=== PATIENT | male | born 2000 | race Two or more races ===

== ENCOUNTER 2023-09-22 17:49 | Emergency (ER) | payer SELFPAY ==
[2023-09-22 17:56] VITALS: BP 137/79; PULSE 69; RESP 14; TEMP 37.1; O2SAT 100; BMI 20.1
--- NOTE | 2023-09-22 18:15 | ED.SKABFB1 ---
HPI - Skin/Abscess/Foreign Bdy General Chief complaint: Skin/Abscess/Foreign Body Stated complaint: rash Time Seen by Provider: 09/22/23 17:53 Source: patient and certified court/medical interpreter Mode of arrival: walk-in History of Present Illness HPI narrative: 23-year-old male presents for rash. It's pruritic and it started after taking an anti-inflammatory, diclofenac, that he was taking for his back. He breathing or swallowing or tongue swelling. The rash is continuous. Related Data Previous Rx's Medication Instructions Recorded prednisone 10 mg tablet See Rx Instructions .Route 09/22/23 .COMPLEX #30 tabs Allergies Allergy/AdvReac Type Severity Reaction Status Date / Time No Known Drug Allergies Allergy Verified 09/22/23 18:03 Review of Systems ROS Narrative A ten point review of systems is negative except as noted above. Exam Narrative Exam Narrative: Nurses note and vital signs reviewed and patient is not hypoxic. General: The patient appears well and in no apparent distress. Patient is resting comfortably on cart. Skin: Warm, dry, no pallor noted. There is an erythematous scattered rash present mostly on his upper torso and left arm. Tongue not swollen. Head: Normocephalic, atraumatic Eye: Normal conjunctiva, no drainage Ears, Nose, Mouth, and Throat: oral mucosa is moist. Nares patent. Cardiovascular: Regular Rate and Rhythm Respiratory: Patient is in no distress, no accessory muscle use, lungs are clear to auscultation, no wheezing, rales or rhonchi Back: non-tender GI: soft and nontender Musculoskeletal: The patient has no evidence of calf tenderness, no pitting edema, symmetrical pulses noted bilaterally Neurological: awake and alert Psychiatric: Cooperative Constitutional Vital Signs, click to edit/add: Last Vital Signs Temp 98.7 F 09/22/23 17:56 Pulse 69 09/22/23 17:56 Resp 14 09/22/23 17:56 BP 137/79 09/22/23 17:56 Pulse Ox 100 09/22/23 17:56 O2 Del Method Room Air 09/22/23 17:56 Course Vital Signs Vital signs: Vital Signs Temperature 98.7 F 09/22/23 17:56 Pulse Rate 69 09/22/23 17:56 Respiratory Rate 14 09/22/23 17:56 Blood Pressure 137/79 09/22/23 17:56 Pulse Oximetry 100 09/22/23 17:56 Oxygen Delivery Method Room Air 09/22/23 17:56 Temperature 98.7 F 09/22/23 17:56 Pulse Rate 69 09/22/23 17:56 Respiratory Rate 14 09/22/23 17:56 Blood Pressure 137/79 09/22/23 17:56 Pulse Oximetry 100 09/22/23 17:56 Oxygen Delivery Method Room Air 09/22/23 17:56 MDM - Skin/Abscess/Foreign Bdy MDM Narrative Medical decision making narrative: my clinical impression is that he has had an ALLERGIC reaction to anti-inflammatory. He was given IM Benadryl and Solu-Medrol and prescribed prednisone. Treatment diagnosis and follow-up were discussed with the patient. Discharge Plan Discharge Chief Complaint: Skin/Abscess/Foreign Body Clinical Impression: Allergic reaction caused by a drug Patient Disposition: Home, Self-Care Time of Disposition Decision: 18:12 Condition: Good Mode of Transportation: Private Vehicle Prescriptions / Home Meds: New prednisone 10 mg tablet See Rx Instructions .ROUTE .COMPLEX Qty: 30 0RF Rx Instructions: 4 by mouth daily for three days then 3 by mouth daily for three days then 2 by mouth daily for three days then 1 by mouth daily for three days Instructions: General Allergic Reaction (ED) Additional Instructions: take over the counter Benadryl for itching Stand Alone Forms: Portal Instructions Referrals: Physician,Non-Staff, MD [Primary Care Provider] - 1 week
[2023-09-22] MEDS: METHYLPREDNISOLONE SOD SUCC PF 125 MG/2 ML VIAL IM (18:22)
[2023-09-22] MEDS: DIPHENHYDRAMINE HCL 50 MG/ML (1ML) VIAL IM (18:23)
== END 2023-09-22 18:46 | disposition home or self-care (01) ==
PROVIDERS: Emergency Provider Emergency Medicine
DX: L27.1 Localized skin eruption due to drugs and medicaments taken internally (principal); T39.395A Adverse effect of other nonsteroidal anti-inflammatory drugs [NSAID], initial encounter
CPT/HCPCS: 96372; 99284; J2930